=== PATIENT | female | born 1980 | race African-American/Black ===

== ENCOUNTER 2016-03-03 21:04 | Emergency (ER) | payer OTHER ==
[~2016-03-03] VITALS: Ht 167.6 cm; Wt 97.1 kg
[~2016-03-03 21:04] MED LIST: KEFLEX500 MG PO; NORCO 325 MG-51 TAB PO; ZOFRAN4 M1 SL
[2016-03-03] MEDS ORDERED: ZOFRAN ODT4 M1 SL (21:18)
[2016-03-03] MEDS ORDERED: PRILOSEC OTC20 M1 PO (21:18)
--- NOTE | 2016-03-03 21:18 | ED GI/GU/ABDOMINAL COMPLAINT ---
History of Present Illness General Chief Complaint: Abdominal Pain/Flank Pain Stated Complaint: EPIGASTRIC PAIN, GETTING OVER STOMACH BUG Source: patient Exam Limitations: no limitations Vital Signs & Intake/Output Vital Signs & Intake/Output Vital Signs Date Time Temp Pulse Resp B/P Pulse O2 O2 Flow FiO2 Ox Delivery Rate 03/037 97.2 98 18 125/80 98 Room Air Allergies Coded Allergies: NO KNOWN ALLERGIES (03/03/16) Reconcile Medications Acetaminophen/Hydrocodone Bi (Rogers 325 MG-5 MG) 1 TAB TAB 1 TAB PO Q6H PRN PAIN Cephalexin (Keflex) 500 MG CAPSULE 1 TAB PO TID INFECTION Omeprazole Magnesium (Prilosec Otc) 20 MG TABLET.DR 1 TAB PO DAILY gastritis Ondansetron (Zofran Odt) 4 MG TAB.RAPDIS 1 TAB SL TID PRN nausea Ondansetron (Zofran Odt) 4 MG TAB.RAPDIS 1 TAB SL Q4-6 PRN NAUSEA Triage Note: PT TO TRIAGE WITH C/O CONSTANT EPIGASTRIC PAIN 5/10, NAUSEA, DIZZINESS SINCE FRIDAY. PT HAD VOMITING AND DIARRHEA ON FRIDAY, AND HAS BEEN TAKING IMODIUM FOR IT. LAST DIARRHEA ON FRIDAY. PT DENIES FEVER, AFEBRILE IN TRIAGE. VSS. Triage Nurses Notes Reviewed? yes ? n Is pt currently ? No Onset: Gradual Duration: day(s):, waxing and waning Timing: recent history Quality/Severity: burning, cramping Location: epigastric Radiation: no radiation Activities at Onset: none Prior Abdominal Problems: none Modifying Factors: Worsens With: vomiting. Associated Symptoms: abdominal pain, nausea/vomiting HPI: 35 yo woman presents with mid epigastric pain after 2-3 days of nausea, vomiting and diarrhea. She notes that vomiting is better, but that she feels intermittent nausea and mild loose stools. She has no fever, chills, dyspnea, chest pain. She is otherwise well. Past History Travel History Traveled to [place] past 21 day No Medical History Any Pertinent Medical History? see below for history Neurological: NONE EENT: NONE Cardiovascular: NONE Respiratory: NONE Gastrointestinal: NONE Hepatic: NONE Renal: NONE Musculoskeletal: NONE Psychiatric: NONE Endocrine: NONE Blood Disorders: NONE Cancer(s): NONE [employer]/Reproductive: NONE Surgical History Surgical History: cholecystectomy Psychosocial History What is your primary language Yemeni Tobacco Use: Never used Family History Hx Contributory? No Review of Systems Review of Systems Constitutional: Reports: no symptoms. EENTM: Reports: no symptoms. Respiratory: Reports: no symptoms. Cardiovascular: Reports: no symptoms. GI: Reports: no symptoms. Genitourinary: Reports: no symptoms. Musculoskeletal: Reports: no symptoms. Skin: Reports: no symptoms. Neurological/Psychological: Reports: no symptoms. Hematologic/Endocrine: Reports: no symptoms. Immunologic/Allergic: Reports: no symptoms. All Other Systems: Reviewed and Negative Physical Exam Physical Exam General Appearance: well developed/nourished, mild distress Head: atraumatic, normal appearance Eyes: Bilateral: normal appearance. Ears, Nose, Throat, Mouth: hearing grossly normal, dental injury, moist mucous membrane Neck: normal inspection, supple, full range of motion, normal alignment Respiratory: normal breath sounds, chest non-tender, no respiratory distress, quiet respiration, lungs clear Cardiovascular: regular rate/rhythm Gastrointestinal: normal bowel sounds, soft, mild mid epigastric tenderness. no rebound. no guarding. , no rlq tenderness to palpation. Back: normal inspection Extremities: normal range of motion Neurologic/Psych: no motor/sensory deficits, awake, alert, oriented x 3 Skin: intact, normal color, warm/dry Core Measures ACS in differential dx? No Severe Sepsis Present: No Septic Shock Present: No Progress Differential Diagnosis: gastritis, reflux, gerd, gastroenteritis. Plan of Care: Orders Procedure Date/time Status LIPASE 03/03 2112 Complete HEPATIC FUNCTION PANEL 03/03 2112 Complete HUMAN BETA HCG SCREEN 03/03 2112 Complete CBC WITHOUT DIFFERENTIAL 03/03 2112 Complete BASIC METABOLIC PANEL 03/03 2112 Complete AMYLASE 03/03 2112 Complete Current Medications Sig/Marie Start time Last Medication Dose Stop Time Status Admin Famotidine 40 MG ONCE ONE 03/03 2314 UNVr (Pepcid) 03/03 2315 Ketorolac 60 MG ONCE ONE 03/03 2314 UNVr Tromethamine 03/03 2315 (Toradol) Laboratory Tests 03/03/162141: Anion Gap 15, Estimated GFR > 60, BUN/Creatinine Ratio 14.3, Glucose 95, Calcium 8.9, Total Bilirubin 0.6, Direct Bilirubin 0.3, AST 33, ALT 67 H, Alkaline Phosphatase 54, Total Protein 7.9, Albumin 4.3, Amylase 83, Lipase 169, Total Beta HCG NEGATIVE, CBC w Diff NO MAN DIFF REQ, RBC 4.77, MCV 87.2, MCH 29.3, RDW 13.8, MPV 9.6, Gran % 66.3, Lymphocytes % 26.9, Monocytes % 6.1, Eosinophils % 0.3, Basophils % 0.4, Absolute Granulocytes 7.6 H, Absolute Lymphocytes 3.1, Absolute Monocytes 0.7 H, Absolute Eosinophils 0, Absolute Basophils 0, PUBS MCHC 33.6 Initial ED EKG: none Departure Departure Disposition: HOME OR SELF CARE Condition: Stable Clinical Impression Primary Impression: Gastroenteritis Secondary Impressions: Gastritis Referrals: MEREDITH ESCOBAR MD (PCP/Family) Departure Forms: Customer Survey General Discharge Information Prescriptions: Current Visit Scripts Omeprazole Magnesium (Prilosec Otc) 1 TAB PO DAILY #30 TAB Ondansetron (Zofran Odt) 1 TAB SL TID PRN nausea #10 TAB Ref 1 Comments 03/03/16, 23:13.... pt feels better after gi cocktail... benign labs... pt safe for discharge... close follow up advised.
[2016-03-03 21:39] LABS: ABSOLUTE BASOPHIL COUNT 0 /CUMM (0.0-0.2); ABSOLUTE EOSINOPHIL COUNT 0 /CUMM (0.0-0.7); ABSOLUTE GRANULOCYTE CT 7.6 /CUMM (1.4-6.5); ABSOLUTE LYMPH COUNT 3.1 /CUMM (1.2-3.4); ABSOLUTE MONOCYTE COUNT 0.7 /CUMM (0.10-0.60); BASOPHIL % 0.4 % (0.0-2.0); EOSINOPHIL % 0.3 % (0-5); GRANULOCYTE % 66.3 % (42.2-75.2); HEMATOCRIT 41.6 % (37-47); MEAN CORPUSCULAR HGB 29.3 PG (27.0-31.0); MEAN CORPUSCULAR HGB CONC 33.6 G/DL (33.0-37.0); MEAN CORPUSCULAR VOLUME 87.2 FL (81.0-99.0); MEAN PLATELET VOLUME 9.6 FL (7.4-10.4); PLATELET COUNT 207 /CUMM (130-400); RBC DISTRIBUTION WIDTH 13.8 % (11.5-14.5); RED BLOOD CELL CT 4.77 /CUMM (4.20-5.40); WHITE BLOOD CELL COUNT 11.4 /CUMM (4.8-10.8)
[2016-03-03 23:22] VITALS: BP 130/84
== END 2016-03-03 23:23 ==
LOC: ERH 21:04
PROVIDERS: Pediatrics
DX: K52.9 Noninfective gastroenteritis and colitis, unspecified (principal)
CPT/HCPCS: 96372; J1885